=== PATIENT | female | born 1955 | race Caucasian/White ===

== ENCOUNTER 2023-08-13 12:58 | Emergency (ER) | payer BC, SELFPAY ==
[2023-08-13 13:06] VITALS: BP 98/59; PULSE 91; RESP 18; TEMP 36.7; O2SAT 97
--- NOTE | 2023-08-13 14:07 | ED.GENADUL_ITS ---
Discharge Plan Disposition Patient Disposition: Home Condition: Good Discharge Details Clinical Impression: Rash Primary Care Provider: Mary Navas V ED Provider: Brian Flowers Home Meds and New Rx's Prescriptions: New prednisone 50 mg tablet 50 mg PO DAILY Qty: 5 0RF loratadine 10 mg capsule 10 mg PO DAILY Qty: 30 0RF Discharge Instructions Instructions: Allergy to Penicillins, Skin Rash ED Additional Instructions: At this time you have a mild rash. It may be secondary to your previous antibiotic use, but it could also be related to something that you ate or came in contact with. Please monitor your rash closely. Please take loratadine and prednisone as directed. If you notice worsening of the rash, large vesicles or lesions, fever, vomiting or diarrhea, please return immediately for reassessment as rashes can change and develop over time. If you notice any worsening of your symptoms, or any new symptoms such as vomiting, diarrhea, fever, chills, shortness of breath, chest pain, numbness, weakness, or fainting , please return immediately to the emergency department for reevaluation. Please follow up with your primary care provider as soon as possible for reassessment and reevaluation. As always, it was a pleasure participating in your medical care today. Referrals: Mary Navas MD [Primary Care Provider] - [facility] General Date/Time Provider Initiated Documentation: 08/13/23 13:46 . [facility] Narrative: 68-year-old female with no significant past medical history presents today for evaluation of rash. Patient recently had dental work 2 weeks ago, left she started amoxicillin as prescribed for 7 days total and completed it about 5 days ago. Today she woke up and noticed a rash over her legs chest abdomen and spreading up to her arms. It is not itchy. She denies any trauma, new detergents, new foods, or previous rash like this. She denies a history of allergies otherwise. She denies any other atypical history. No other complaints at this time. She denies any burning with urination. No lesions in her mouth. No vomiting or diarrhea. No shortness of breath or difficulty breathing. Related Data Home Medications Medication Instructions Recorded Confirmed loratadine 10 mg capsule 10 mg PO DAILY #30 caps 08/13/23 prednisone 50 mg tablet 50 mg PO DAILY #5 tabs 08/13/23 Previous Rx's Medication Instructions Recorded loratadine 10 mg capsule 10 mg PO DAILY #30 caps 08/13/23 prednisone 50 mg tablet 50 mg PO DAILY #5 tabs 08/13/23 Allergies Allergy/AdvReac Type Severity Reaction Status Date / Time No Known Allergies Allergy Unverified 08/13/23 13:10 General Stated Complaint: RashLesion MARIBEL: 3 Review of Systems All systems reviewed & are unremarkable except as noted in HPI and below Exam Narrative Exam Narrative: 1.Const: Well-nourished, Well-developed, appearing stated age 2.Eyes: PERRL, no conjunctival injection, and symmetrical lids. 3.ENT: Atraumatic external nose and ears. Moist MM. Neck: Symmetric, trachea midline, No thyromegaly. 4.CVS: +S1/S2, No murmurs or gallops. Peripheral pulses 2+ and equal in all extremities. Brisk capillary refill in all extremities. 5.RESP: Unlabored respiratory effort. Clear to auscultation bilaterally. No wheezes rales or rhonchi 6.GI: Soft, Nontender/Nondistended, No hepatosplenomegaly. No guarding or rebound. 7.MSK: Normocephalic/Atraumatic, Extremities w/o deformity or ttp No cyanosis or clubbing, Normal movement of all extremities 8.Skin: Warm, Dry. Patient demonstrates a diffuse, flat nonraised, petechial- like rash over the legs chest abdomen back and arms. No oral lesions. No conjunctival injection. No convalescence of the lesions. Negative Nikolsky sign. No large vesicles or bulla. No palpable purpura. No oral lesions. No mucosal lesions. No evidence of severe cellulitis. No evidence of vaccine preventable rash. 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 Sensation grossly intact, no focal neurologic deficits. 10.Psych: (AAO) x3. Appropriate mood and affect Course Vital Signs Vital signs: Vital Signs Temperature 36.7 C 08/13/23 13:06 Pulse 91 H 08/13/23 13:06 Respiratory Rate 18 08/13/23 13:06 Blood Pressure 98/59 L 08/13/23 13:06 Pulse Oximetry 97 08/13/23 13:06 Temperature 36.7 C 08/13/23 13:06 Temperature Source Temporal Artery Scan 08/13/23 13:06 Pulse 91 H 08/13/23 13:06 Respiratory Rate 18 08/13/23 13:06 Respiratory Effort Normal, Non-Labored 08/13/23 13:11 Blood Pressure 98/59 L 08/13/23 13:06 Blood Pressure Position Sitting 08/13/23 13:06 Pulse Oximetry 97 08/13/23 13:06 Oxygen Delivery Method Room Air 08/13/23 13:06 Oxygen Flow Rate 0 08/13/23 13:06 Medical Decision Making 68-year-old female with no significant past medical history presents today for evaluation of rash. Patient recently had dental work 2 weeks ago, left she started amoxicillin as prescribed for 7 days total and completed it about 5 days ago. Today she woke up and noticed a rash over her legs chest abdomen and spreading up to her arms. It is not itchy. She denies any trauma, new detergents, new foods, or previous rash like this. She denies a history of allergies otherwise. She denies any other atypical history. No other complaints at this time. She denies any burning with urination. No lesions in her mouth. No vomiting or diarrhea. No shortness of breath or difficulty breathing. Exam demonstrates well-appearing female, she has evidence of a petechial nonraised rash with no convalescence or other atypical components. It is all over her legs chest back abdomen and pelvis and arms. No oral lesions. No le sions on the palms of the hands or the soles of the feet. No current clinical evidence of staph scalded skin syndrome, erythema multiforme, erythema migrans, toxic epidermal necrolysis, Walls-Leo syndrome, Kawasaki-like rash, meningococcemia, pemphigus vulgaris, or necrotizing fasciitis. She has no nuchal rigidity, no fever or headache. She is notably nontoxic-appearing. Symptoms likely secondary to a viral component, amoxicillin related, or a mild type of contact dermatitis. She is on no other significant medications otherwise. With her excellent clinical appearance, I do not see an indication for labs or skin biopsy emergently at this time. Will give prednisone and loratadine. She shows no evidence of anaphylaxis whatsoever. She looks notably well. Patient will be discharged home with 5-day course of prednisone and loratadine. Recommend close return if symptoms change or worsen. Discussed red flags which return. I have extensively reviewed the treatment plan and di ana luisa instructions with the patient and their family. I have addressed all patient concerns at this time. The patient and family was made aware of what symptoms to monitor for that would warrant a return to the emergency department. Discussed the plan with the patient and family, they demonstrate verbal understanding and agreement with our assessment and plan at this time. The documentation in this chart was dictated using [employer] dictation software. Please excuse any dictation errors. Quality:SDOH Health Related Social Needs: No Data to Display PFSH All Active Problems Rash (Acute) Urticaria (Acute) Social History Smoking/Tobacco Use Status: Current-Occasional Smoking risk assessment performed?: Yes Alcohol Intake: current Alcohol Intake frequency: holidays/special occasions only Drug use: Never Substance use type: does not use Do you feel safe at home: Yes Do you feel safe in your relationship?: Yes
[2023-08-13 14:26] VITALS: BP 98/59; PULSE 91; RESP 18; TEMP 36.7; O2SAT 97
[2023-08-13] MEDS: Loratidine 10 MG TAB PO (14:28)
[2023-08-13] MEDS: predniSONE 20 MG TAB 60 MG PO (14:28)
== END 2023-08-13 14:26 | disposition home or self-care (01) ==
PROVIDERS: Emergency Provider Student in an Organized Health Care Education/Training Program; PCP Family Medicine
DX: R21 Rash and other nonspecific skin eruption (principal); F17.200 Nicotine dependence, unspecified, uncomplicated
CPT/HCPCS: 99283; J7512

== ENCOUNTER 2024-02-15 06:09 | Observation (INO) | payer BC, SELFPAY ==
[2024-02-15] VITALS (43 sets, daily range): BP systolic 111–166; BP diastolic 67–106; PULSE 64–108; RESP 12–28; TEMP 35.9–37; O2SAT 88–97
--- NOTE | 2024-02-15 06:15 | RT.EKG_ITS ---
APPROVED REPORT Exam: Resting ECG Reason for Exam: cough Patient Location: E HR:95 bpm ECG Measurements Heart Rate 95 AXIS TN 160 P 44 QRSd 90 QRS 6 QT 365 T 44 QTc 459 Conclusion Sinus rhythm...normal P axis, V-rate 60- 99 Normal axis and interval. Nonspecific ST-T changes
--- NOTE | 2024-02-15 06:17 | W.ED.GENAD ---
Discharge Plan Discharge Details Chief Complaint: SOB Clinical Impression: Acute CHF Primary Care Provider: Mary Navas V ED Provider: Burke Zuñiga Home Meds and New Rx's Prescriptions: No Action No Known Home Meds HPI General Mode of arrival: EMS. Date/Time Provider Initiated Documentation: 02/15/24 06:11. Limitations to Documentation: no limitations. Information obtained by: patient, EMS and RN notes reviewed. HPI Narrative: Patient presents to ED from home after calling EMS for shortness of breath. Patient reports increasing shortness of breath over the last week. Shortness of breath much worse with exertion. EMS reports finding her with saturations in the 80s. She was just placed on 0.5 nasal cannula with improvement of saturations. She arrives here tachypneic and tachycardic but not in distress. She does report a history of smoking but has not smoked in the last week. Denies having any fever, chest pain or pressure, abdominal pain, vomiting. She has had some anterior leg pain but no leg swelling or calf pain. She reports no significant past medical history, does not take any medications. Had dental surgery couple months ago so that she could get implants, but no other surgeries. Related Data Home Medications ?Medication ?Instructions ?Recorded ?Confirmed Unknown [No Known Home Meds] 02/15/24 02/15/24 Allergies Allergy/AdvReac Type Severity Reaction Status Date / Time No Known Allergies Allergy Unverified 02/15/24 06:20 General Stated Complaint: SOB MARIBEL: 3 Review of Systems Narrative: Per HPI Exam Narrative Exam Narrative: Const: WDWN elderly female with tachypnea but no distress. VS per triage. HEENT: NC/AT. Normal facial exam. Neck: Supple. Trachea midline. Lungs: Decent air exchange with occasional wheeze, diffuse rhonchi throughout, no crackles appreciated. Cor: RRR, tachycardic, faint murmur. Good radial pulses. GI: Soft/ND/NT. Neuro: A+O x 3. Normal speech, mentation, gait. Cranial nerves II - XII grossly intact. No gross motor or sensory deficit. Ext: No C/C. Mild BLE that is symmetric. No calf tenderness. Course Vital Signs Vital signs: Vital Signs Temperature 96.6 F L 02/15/24 06:09 Pulse 108 H 02/15/24 06:09 Respiratory Rate 18 02/15/24 06:09 Blood Pressure 166/106 H 02/15/24 06:09 Pulse Oximetry 92 02/15/24 06:09 Temperature 96.6 F L 02/15/24 06:09 Temperature Source Temporal Artery Scan 02/15/24 06:09 Pulse 108 H 02/15/24 06:09 Respiratory Rate 18 02/15/24 06:09 Blood Pressure 166/106 H 02/15/24 06:09 Blood Pressure Position Sitting 02/15/24 06:09 Pulse Oximetry 92 02/15/24 06:09 Oxygen Delivery Method Room Air 02/15/24 06:09 Oxygen Flow Rate 0 02/15/24 06:09 Pain Level 0 02/15/24 06:09 Medical Decision Making Elderly female with history of smoking but no other significant past medical history and no medications presenting with a weeks worth of worsening shortness of breath. Initially started out as dyspnea on exertion now short of breath at rest. Room air saturations here are about 92%. She is not in distress but she is sitting upright, is tachypneic, diffuse rhonchi with only few scattered wheezes and decent air exchange. Denies any fever. Has a chronic unchanged cough. Denies chest pain or pressure. Her EKG is sinus tachycardia with nonspecific ST changes, nothing acute and nothing suggesting ischemia. Despite the smoking history she is moving air well without significant wheeze. Will hold off on nebulizer for time being. Consider PE, atypical presentation of ACS. IV established. Laboratory studies obtained. CTA of the chest ordered. Oxygen as needed to keep saturations greater than 92%. 07:14 - Patient's labs with a normocytic anemia, hemoglobin 8.8. White count and platelets are normal. Chemistries unremarkable. Creatinine a little up at 1.2. Liver functions elevated with AST of 131 and ALT of 167. Her troponin is elevated at 85. Her BNP is 21,726. Suspect her shortness of breath and desire to sit upright is due to congestive heart failure, with elevated LFTs suggesting hepatic congestion. She did not experience any type of chest pain or pressure. She has had symptoms for about a week. Possible that she had an AR last week at some point but also possible that her trop is mildly elevated because of demand ischemia. I have ordered her for 40 of Lasix IV. Will obtain 2nd troponin at 8 AM. Will proceed with CTA though I doubt PE at this point. She will need to be admitted pending completion of workup. She is signed out to oncoming ED physician Dr. Bull. Lab Data Lab results reviewed: Yes I reviewed the patient's lab results. Lab results narrative: see [facility] ECG Data Attestation: I personally reviewed and interpreted this ECG (s) as follows: Prior ECG tracings: not available for review Interpretation: see [facility] Critical Care Time Critical Care Time Critical Care Time: Yes Total Critical Care Time: 45 Attestation: Upon my evaluation, this patient had a high probability of imminent or life-threatening deterioration, which required my direct attention, intervention, and personal management. I have personally provided 45 minutes of critical care time exclusive of time spent on separately billable procedures. Time includes monitoring for potential decompensation, ordering of tests and medications, review of laboratory and radiology results, discussion with consultants and documentation . Interventions were performed as documented above in procedures. PFSH All Active Problems (Updated 02/15/24 @ 07:22 by Burke Zuñiga MD) Acute CHF (Acute) Medical History No significant past medical history Surgical History History of dental surgery Social History Smoking/Tobacco Use Status: Former Tobacco Use Quit Date: 02/09/24 Smoking risk assessment performed?: Yes Alcohol Intake: current Alcohol Intake frequency: holidays/special occasions only Drug use: Never Substance use type: does not use Do you feel safe at home: Yes Do you feel safe in your relationship?: Yes
--- NOTE | 2024-02-15 06:18 | DI.CT_ITS ---
Exam(s) CT CHEST PE CTA EXAM: CT CHEST PE CTA CLINICAL HISTORY: SOB, tachycardia. TECHNIQUE: Imaging Protocol: Axial CT angiography was performed with multi-slice acquisition and mu lti-planar reconstructions as well as axial, coronal and sagittal MIP reconstructions. Computer aided detection (CAD) was utilized. CONTRAST MATERIAL: Intravenous: Omnipaque 350 Contrast volume:100 ml COMPARISON: No exams were available for comparison FINDINGS: Pulmonary Arteries: No evidence of filling defect to suggest pulmonary emboli. Mediastinum and Tricia: No dominant adenopathy or fluid collection. Pulmonary parenchyma: No consolidation or dominant measurable mass. Pulmonary edema. Emphysematous changes greater at the apices. Pleura: Moderate size bilateral pleural effusions. No pneumothorax. Heart: The heart is markedly dilated. Moderate to severe coronary artery calcifications are seen. Aorta: Thoracic aorta non-dilated. Not opacified with contrast. Upper abdomen: Reflux of contrast into the IVC indicating right heart failure.. Adrenal thickening. Bones: Degenerative changes. Mild scoliosis. Tubes, Catheters, and Lines: None Soft tissues: Cachectic body habitus. IMPRESSION: No evidence of pulmonary embolism. Cardiomegaly, moderate bilateral pleural effusions and pulmonary edema. RADIATION DOSE DELIVERED: 53.22mGy.cm Total DLP DATA REPOSITORY: All CT scans at this facility are submitted to the National Radiology Data Registry (NRDR) Dose Index Registry (DIR) with the [employer] (ACR). RADIATION OPTIMIZATION: All CT scans at this facility use at least one of these dose optimization te chniques: automated exposure control; mA and/or kV adjustment per patient size (includes targeted exa ms where dose is matched to clinical indication); or iterative reconstruction.
[2024-02-15 06:38] LABS: Abs Immature Grans 0.04 10^3/uL (0.0-0.06); Absolute Basophil Count 0.05 10^3/uL (0.0-0.2); Absolute Eosinophil Count 0.26 10^3/uL (0.0-0.7); Absolute Lymphocyte Count 0.52 10^3/uL (1.2-3.4); Absolute Monocyte Count 0.21 10^3/uL (0.1-0.8); Absolute Neutrophil Count 4.63 10^3/uL (1.2-6.7); Basophils % 0.9 %; Eosinophils % 4.6 %; HCT 28.9 % (36.0-46.0); HGB 8.8 g/dL (11.2-15.7); Immature Grans % 0.7 %; Lymphocytes % 9.1 %; MCHC 30.4 % (32.0-36.0); MCV 89 fL (80-95); MPV 9.4 fL (8.0-11.0); Monocytes % 3.7 %; Platelet Count 241 10^3/uL (130-400); RBC 3.26 10^6/uL (3.93-5.22); RDW 17.3 % (11.7-14.6); RDW-SD 55.8 fL; WBC 5.71 10^3/uL (4.4-10.8)
[2024-02-15 07:01] LABS: ALT 167 U/L (14-59); AST 131 U/L (15-37); Albumin 3.1 g/dL (3.4-5.0); Alkaline Phosphatase 203 U/L (46-116); BUN 14 mg/dL (7-18); Bilirubin, Total 0.54 mg/dL (0.2-1.0); CREATININE 1.2 mg/dL (0.55-1.02); Calcium 8.1 mg/dL (8.5-10.1); Chloride 111 mmol/L (98-107); Glucose 129 mg/dL (74-106); Magnesium 2.1 mg/dL (1.8-2.4); NT-proBNP 21726 pg/mL (<300); Potassium 4.2 mmol/L (3.5-5.1); Sodium 144 mmol/L (136-145); Total Protein 6.5 g/dL (6.4-8.2)
[2024-02-15 07:02] LABS: Troponin I 85 ng/L (<or=51)
[2024-02-15] MEDS: Omnipaque 350 MG/ML 100 ML BTL 70 ML IJ (07:15)
[2024-02-15] MEDS: Normal Saline - Diluent 50 ML VIAL IJ (07:15)
[2024-02-15] MEDS: Furosemide 40 MG/4 ML VIAL IVP ×2 (07:34→15:49)
--- NOTE | 2024-02-15 07:48 | DI.VRAD_ITS ---
PROCEDURE INFORMATION: Exam: CTA Chest With Contrast Exam date and time: 02/15/2024 7:21 AM Age: 68 years old Clinical indication: Other: SOB, tachycardia TECHNIQUE: Imaging protocol: Computed tomographic angiography of the chest with contrast. Exam focused on the arteries. 3D rendering (Not supervised by radiologist): MIP and/or 3D reconstructed images were created by the technologist. Contrast material: OMNIPAQUE; Contrast volume: 70 ml; Contrast route: INTRAVENOUS (IV); COMPARISON: No relevant prior studies available. FINDINGS: Limitations: Mild motion artifact. Pulmonary arteries: No pulmonary embolus is appreciated. Aorta: No thoracic aortic aneurysm seen. Extensive arterial calcifications. Lungs: Cystic changes in the lungs. Interstitial thickening and ground-glass opacities in both lungs. Pleural spaces: Moderate bilateral pleural effusions. Heart: Cardiomegaly. Reflux of contrast into the hepatic veins suggesting right heart failure. Correlate Coronary arteries: Coronary artery calcifications. Esophagus: Fluid and debris in the esophagus. Patient may be at risk for aspiration. Lymph nodes: There is mediastinal and bilateral hilar lymphadenopathy. Adrenal glands: Adrenal thickening. Bones/joints: No acute pertinent abnormality seen. Soft tissues: No acute pertinent abnormality seen. IMPRESSION: 1. No pulmonary embolus is appreciated. 2. Findings suggestive of heart failure with cardiomegaly, pulmonary edema and pleural effusions as described above. Infection cannot be excluded. Follow-up as clinically warranted. 3. Additional findings as above. Dictated and Authenticated by: Shawanda Alas MD. Ordering:DYAN Turk MD
--- NOTE | 2024-02-15 08:04 | ED.PROG_ITS ---
Date of service: 02/15/24 Time of Service: 08:05 Medical Decision Making Care assumed from off going provider. Patient is a 68-year-old female without significant past medical history that presented with new shortness of breath. Workup thus far has been concerning for hypoxia on arrival at 80%. Lab work is concerning for new onset CHF. She has been given Lasix and started diuresing. At the time of signout a CT scan was pending. I have reviewed the V rad report which indicates no sign of pulmonary embolism, there is findings suggestive of heart failure including cardiomegaly pulmonary edema and pulmonary effusions. She is pending a repeat troponin and will be admitted to the hospital for further evaluation once workup has been complete. 0925 Repeat troponin slightly elevated though delta does not seem to to indicate an ACS, but more likely demand ischemia. I have discussed with the hospitalist who agrees to admit the patient for new onset CHF. Will give full dose aspirin as well as high-dose statin. Patient continues to diurese and this is being monitored closely. Quality:SDOH Health Related Social Needs: No Data to Display Discharge Plan Disposition Patient Disposition: Admit to [facility] Condition: Fair Discharge Details Clinical Impression: Acute CHF Primary Care Provider: Mary Navas V ED Provider: Lanny Bull Home Meds and New Rx's Prescriptions: No Action No Known Home Meds
[2024-02-15 08:08] LABS: BE (Venous) -3 mmol/L (-2-3); HCO3 (Venous) 23 mmol/L (23-28); O2 Sat (Venous) 50 %; TCO2 (Venous) 22 mmol/L (24-29); pCO2 (Venous) 43 mmHg (41-51); pH (Venous) 7.33 (7.31-7.41); pO2 (Venous) 30 mmHg
[2024-02-15 08:51] LABS: Troponin I 101 ng/L (<or=51)
--- NOTE | 2024-02-15 09:24 | HPE_ITS ---
Date of service: 02/15/24 Time of Service: 12:05 Assessment and Plan Assessment and plan (1) Acute CHF: Status: Acute Assessment and plan: New diagnosis, evident on CT chest and BNaP and consistent with patient presentation. Echo done to assess ejection fraction, shows reduced LVEF Responding to furosemide, continue BID Medical management indicated for GDMT for HFrEF, add metoprolol when fluid status stable, consider THOMAS/ARB/ARNI, MRA, SLGT2i when renal function stable. (2) Elevated troponin level not due to acute coronary syndrome: Status: Acute Assessment and plan: EKG not c/w STEMI, no chest pain, mild elevation c/w strain from CHF. She is likely to have some coronary artery disease however. Treat with ASA and statin, follow troponins until trending down, repeat EKG if trending up or if develops chest pain. Should have ischemic work up once CHF stable. Measure lipids and A1c to assess CV risk. (3) Anemia: Status: Chronic Assessment and plan: May be contributing to CHF. Unclear time course. High RDW suggests she is responding with elevated reticulocytes, which suggests this is subacute or chronic. -Follow CBC -monitor for bleeding, get occult blood in stool -check iron studies, reticulocyte count -with heart disease consider transfusion if hgb dropping below 8% (4) Smoker: Status: Acute Assessment and plan: Support in efforts to quit, NRT prn (5) Elevated liver enzymes: Status: Acute Assessment and plan: Unclear if acute or chronic. This is likely congestive from CHF, but no screens documented. Get hepatitis labs. (6) Renal insufficiency, mild: Status: Acute Assessment and plan: Unclear baseline, follow function. (7) Abnormal CT scan, esophagus: Status: Acute Assessment and plan: CT suggests some obstruction of food. She has had weight loss, at risk for esophogeal cancer. Should have EGD subacutely. 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 Her shortness of breath started just with exertion about a month ago. She has not had chest pain or palpitations. She has a mild cough with occaisional sputum production, but she attributes this to an ill fitting temporary upper denture. No hemoptysis. The dyspnea has become more chronic and was significantly worse on the day of admission. She has also experienced orthopnea and PND. SOB has improved significantly since diureses in ED with 40mg furosemide. She denies any known history of heart, liver, or kidney issues. She has been told at acute care and the dentist that her blood pressure was low. She has lost about 25lbs since July when she had dental surgery. 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 No bleeding or bruising, no known history of anemia. Review of Systems All systems reviewed & are unremarkable except as noted in HPI and below Constitutional Constitutional: Denies chills and Denies fever(s) ENT Ears, Nose, Mouth, and Throat: Denies dysphagia, Denies nasal congestion, Denies nasal discharge and Reports sore throat (last week along with coworkers, not now) Gastrointestinal Gastrointestinal: Reports belching (more recently), Denies melena, Denies hematochezia, Denies change in bowel habits, Denies change in stool character and Denies dysphagia Hematologic/Lymphatic Hematologic/Lymphatic: Denies easy bleeding PFSH All Active Problems (Updated 02/15/24 @ 13:53 by Reji Thomas) Abnormal CT scan, esophagus (Acute) Renal insufficiency, mild (Acute) DVT prophylaxis (Acute) Elevated liver enzymes (Acute) Elevated troponin level not due to acute coronary syndrome (Acute) Anemia (Chronic) Smoker (Acute) Acute CHF (Acute) Medical History No significant past medical history Surgical History History of dental surgery Social History (Updated 02/15/24 @ 13:42 by Reji Thomas) Smoking/Tobacco Use Status: Former Tobacco Use tobacco type: cigarettes Quit Date: 02/09/24 Smoking risk assessment performed?: Yes Alcohol Intake: current Alcohol Intake frequency: holidays/special occasions only Drug use: Never Substance use type: does not use Housing: house Do you feel safe at home: Yes Do you feel safe in your relationship?: Yes Additional Social history: Lives with in [place]. 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 Normal habitus. No acute distress at rest. HEENT: Head atraumatic. Conjunctiva clear, no icterus. PEERL, EOMI. no rhinorrhea. MMM, OP benign. Neck is supple with no masses or lymphadenopathy, trachea midline LUNGS: Rales in bilateral bases 1/4 up lung gabriel, no wheezes, with normal effort with NC on 1 liter CV: RRR with no murmurs, gallops, or rubs. JVP around 12-14 cm H20 ABD: active bowel sounds, soft, nontender and nondistended. No masses. EXT: no cyanosis, clubbing, or edema MSK: No joint redness or swelling NEURO: CN 2-12 grossly intact. Normal movement of 4 extremities. Normal speech and coordination. No tremor SKIN: No rashes or open wounds. No bruising PSYCH: normal mood and affect, normal thought process Results Imaging CT scan - chest: report reviewed Additional studies: echocardiogram: Mild concentric left ventricular hypertrophy. LV is mildly dilated. Ejection fraction is 25 to 30% with significant global hypokinesis Mildly dilated right ventricle Moderately dilated left atrium. Severely dilated right atrium Aortic valve is sclerotic and trileaflet with trace regurgitation Mitral annular calcification. Mildly thickened mitral leaflets. Moderate mitral regurgitation Normal tricuspid valve with moderate to severe regurgitation. Estimated right ventricular systolic pressure is 57 mmHg EKG: report reviewed and image reviewed (NSR, nl axis, intervals. No ST elevation/depression, flat t-waves diffusely) Imaging Studies: CT chest w: 1. No pulmonary embolus is appreciated. 2. Findings suggestive of heart failure with cardiomegaly, pulmonary edema and pleural effusions as described above. Infection cannot be excluded. Follow-up as clinically warranted. 3. Additional findings as above. Labs 02/15/24 06:25 02/15/24 06:25 Labs: Laboratory Results - last 24 hr 12/26/24 12/26/24 12/26/24 06:25 08:00 08:25 WBC 5.71 RBC 3.26 L Hgb 8.8 L Hct 28.9 L MCV 89 MCH 27.0 MCHC 30.4 L RDW 17.3 H Plt Count 241 MPV 9.4 Immature Gran % 0.7 Neutrophils % 81.0 Lymphocytes % 9.1 Monocytes % 3.7 Eosinophils % 4.6 Basophils % 0.9 Nucleated RBC % 0.0 Absolute Neutrophils 4.63 Absolute Lymphocytes 0.52 L Absolute Monocytes 0.21 Absolute Eosinophils 0.26 Absolute Basophils 0.05 VBG pH 7.33 VBG pCO2 43 VBG pO2 30 VBG HCO3 23 VBG Total CO2 22 L VBG O2 Saturation 50 VBG Base Excess -3 L Sodium 144 Potassium 4.2 Chloride 111 H Carbon Dioxide 23.0 Anion Gap 10.0 BUN 14 Creatinine 1.2 H Est GFR (CKD-EPI 2020) 48.70 Glucose 129 H Calcium 8.1 L Magnesium 2.1 Total Bilirubin 0.54 AST 131 H ALT 167 H Alkaline Phosphatase 203 H Troponin I 85 H* 101 H* NT-Pro-B Natriuret Pep 53364 H Total Protein 6.5 Albumin 3.1 L Last Vital Signs Temp 35.9 C L 02/15/24 06:15 Pulse 102 H 02/15/24 08:31 Resp 24 02/15/24 08:31 BP 148/101 H 02/15/24 08:31 Pulse Ox 97 02/15/24 08:31 Time Spent Time spent with Patient: >75 minutes Time was spent: preparing to see the patient(eg.review tests), obtaining and/or reviewing separately otained hiistory, ordering medications,tests, procedures, referring, communicating with other health manager intensive care unit, indepentently interpreting results, counseling the patient and care coordination
[2024-02-15] MEDS: Aspirin 325 MG TAB PO (09:38)
[2024-02-15] MEDS: Atorvastatin 40 MG TAB 80 MG PO (09:38)
[2024-02-15 10:34] LABS: Hemoglobin A1C 5.7 % (<5.7)
[2024-02-15 10:35] LABS: INR 1.1 (0.9-1.1); Prothrombin Time 11.4 sec (9.1-11.1)
[2024-02-15 10:36] LABS: Reticulocyte 1.9 % (0.5-2.4)
--- NOTE | 2024-02-15 10:57 | W.PC.ACHO ---
Registration Status: Primary Language: Preferred Language: ED Information & Data Chief Complaint SOB 02/15/24 06:19 Triage Note pt arrives by EMS c/o 02/15/24 06:09 difficulty breathing. woke up with dry non productive cough. EMS found her in 80's and placed on 1/2 L of O2, improved to 96%. Has been experiencing exertional SOB for the last few days. Denies CP, fever, N/V/D, abd pain. pt recently quit smoking. Medical / Surgical History (Last Reviewed 02/15/24 @ 06:26 by Burke Zuñiga MD) No significant past medical history (Last Reviewed 02/15/24 @ 06:26 by Burke Zuñiga MD) History of dental surgery Most Recent Vital Signs Temperature 37 C 02/15/24 10:37 Temperature Source Temporal Artery Scan 02/15/24 10:37 Pulse 100 H 02/15/24 10:37 Pulse 91 H 02/15/24 09:20 Respiratory Rate 22 02/15/24 10:37 Respiratory Effort Normal 02/15/24 06:15 Respiratory Depth Normal 02/15/24 06:15 Respiratory Pattern Normal 02/15/24 06:15 Blood Pressure 150/103 H 02/15/24 10:37 Blood Pressure Mean 105 02/15/24 09:16 Blood Pressure Position Sitting 02/15/24 06:15 Pulse Oximetry 88 L 02/15/24 10:37 Oxygen Delivery Method Room Air 02/15/24 10:37 Oxygen Flow Rate 0 02/15/24 10:37 Pain Level 0 02/15/24 10:37 Comment 1 l nc placed 02/15/24 10:37 Allergies No Known Allergies Allergy (Unverified 02/15/24 06:20) Precautions Isolation Standard precaution 02/15/24 06:15 IV IV Catheter Type [Right Peripheral IV Antecubital] IV Catheter Type [Left Forearm Peripheral IV ] IV Catheter Gauge [Right 18 Antecubital] IV Catheter Gauge [Left 20 Forearm] Diet Orders Category Date Time Status Heart Healthy Eating [DIET] Nutrition 02/15/24 Lunch Active Diagnostics 02/15/24 02/15/24 02/15/24 Range/Units 12:25 10:15 08:25 WBC (4.4-10.8) 10^3/uL RBC (3.93-5.22) 10^6/uL Hgb (11.2-15.7) g/dL Hct (36.0-46.0) % MCV (80-95) fL MCH (27.0-33.0) pg MCHC (32.0-36.0) % RDW (11.7-14.6) % Plt Count (130-400) 10^3/uL MPV (8.0-11.0) fL Reticulocyte % (Auto) 1.9 (0.5-2.4) % Immature Gran % % Neutrophils % % Lymphocytes % % Monocytes % % Eosinophils % % Basophils % % Nucleated RBC % (0.0-0.3) % Absolute Neutrophils (1.2-6.7) 10^3/uL Absolute Lymphocytes (1.2-3.4) 10^3/uL Absolute Monocytes (0.1-0.8) 10^3/uL Absolute Eosinophils (0.0-0.7) 10^3/uL Absolute Basophils (0.0-0.2) 10^3/uL PT 11.4 H (9.1-11.1) sec INR 1.1 (0.9-1.1) VBG pH (7.31-7.41) VBG pCO2 (41-51) mmHg VBG pO2 mmHg VBG HCO3 (23-28) mmol/L VBG Total CO2 (24-29) mmol/L VBG O2 Saturation % VBG Base Excess (-2-3) mmol/L Sodium (136-145) mmol/L Potassium (3.5-5.1) mmol/L Chloride (98-107) mmol/L Carbon Dioxide (21.0-32.0) mmol/L Anion Gap (3-11) mmol/L BUN (7-18) mg/dL Creatinine (0.55-1.02) mg/dL Est GFR (CKD-EPI 2020) (mL/min/1.73m2) Glucose (74-106) mg/dL Hemoglobin A1c 5.7 (<5.7) % Calcium (8.5-10.1) mg/dL Magnesium (1.8-2.4) mg/dL Iron Pending TIBC Pending Transferrin % Sat Pending Ferritin Pending Total Bilirubin (0.2-1.0) mg/dL AST (15-37) U/L ALT (14-59) U/L Alkaline Phosphatase (46-116) U/L Troponin I Pending 101 H* (<or=51) ng/L NT-Pro-B Natriuret Pep (<300) pg/mL Total Protein (6.4-8.2) g/dL Albumin (3.4-5.0) g/dL Hepatitis A IgM Ab Pending Hep Bs Antigen Pending Hep B Core Total Ab Pending Hepatitis C Antibody Pending 02/15/24 02/15/24 Range/Units 08:00 06:25 WBC 5.71 (4.4-10.8) 10^3/uL RBC 3.26 L (3.93-5.22) 10^6/uL Hgb 8.8 L (11.2-15.7) g/dL Hct 28.9 L (36.0-46.0) % MCV 89 (80-95) fL MCH 27.0 (27.0-33.0) pg MCHC 30.4 L (32.0-36.0) % RDW 17.3 H (11.7-14.6) % Plt Count 241 (130-400) 10^3/uL MPV 9.4 (8.0-11.0) fL Reticulocyte % (Auto) (0.5-2.4) % Immature Gran % 0.7 % Neutrophils % 81.0 % Lymphocytes % 9.1 % Monocytes % 3.7 % Eosinophils % 4.6 % Basophils % 0.9 % Nucleated RBC % 0.0 (0.0-0.3) % Absolute Neutrophils 4.63 (1.2-6.7) 10^3/uL Absolute Lymphocytes 0.52 L (1.2-3.4) 10^3/uL Absolute Monocytes 0.21 (0.1-0.8) 10^3/uL Absolute Eosinophils 0.26 (0.0-0.7) 10^3/uL Absolute Basophils 0.05 (0.0-0.2) 10^3/uL PT (9.1-11.1) sec INR (0.9-1.1) VBG pH 7.33 (7.31-7.41) VBG pCO2 43 (41-51) mmHg VBG pO2 30 mmHg VBG HCO3 23 (23-28) mmol/L VBG Total CO2 22 L (24-29) mmol/L VBG O2 Saturation 50 % VBG Base Excess -3 L (-2-3) mmol/L Sodium 144 (136-145) mmol/L Potassium 4.2 (3.5-5.1) mmol/L Chloride 111 H (98-107) mmol/L Carbon Dioxide 23.0 (21.0-32.0) mmol/L Anion Gap 10.0 (3-11) mmol/L BUN 14 (7-18) mg/dL Creatinine 1.2 H (0.55-1.02) mg/dL Est GFR (CKD-EPI 2020) 48.70 (mL/min/1.73m2) Glucose 129 H (74-106) mg/dL Hemoglobin A1c (<5.7) % Calcium 8.1 L (8.5-10.1) mg/dL Magnesium 2.1 (1.8-2.4) mg/dL Iron TIBC Transferrin % Sat Ferritin Total Bilirubin 0.54 (0.2-1.0) mg/dL AST 131 H (15-37) U/L ALT 167 H (14-59) U/L Alkaline Phosphatase 203 H (46-116) U/L Troponin I 85 H* (<or=51) ng/L NT-Pro-B Natriuret Pep 16774 H (<300) pg/mL Total Protein 6.5 (6.4-8.2) g/dL Albumin 3.1 L (3.4-5.0) g/dL Hepatitis A IgM Ab Hep Bs Antigen Hep B Core Total Ab Hepatitis C Antibody Intake and Output - 24 Hour Total 02/15/24 05:58 thru 02/15/24 10:38 Output Total 2200 Balance -2200 Weight 50.7 kg Output: Urine 2200 Falls Risk Assessment History of Falls No History 02/15/24 06:15 Contributing Factors No Factors 02/15/24 06:15 Ambulatory Aids Independent 02/15/24 06:15 Tubes/Lines W/no contributing factors 02/15/24 06:15 Gait Evaluation No gait disturbance 02/15/24 06:15 Cognition No cognitive impairment 02/15/24 06:15 Fall Total Score 10 02/15/24 06:15 Level of Risk Standard/Low Risk 02/15/24 06:15 Problems (Last Reviewed 12/26/24 @ 06:26 by Burke Zuñiga MD) Renal insufficiency, mild (Acute) DVT prophylaxis (Acute) Elevated liver enzymes (Acute) Elevated troponin level not due to acute coronary syndrome (Acute) Anemia (Chronic) Smoker (Acute) Acute CHF (Acute) v v v v v v v v v Sending and/or Receiving Nurses: Please use comment section below to note any information pertinent to the patient hand-off not included above. Information / Comments: Report received from: Drea 02/15/24 @ 10 am and gadiel carr @ 1030am
[2024-02-15 11:01] LABS: Ferritin 121 ng/mL (8-252)
[2024-02-15 11:06] LABS: Iron 24 ug/dL (50-170); Total Iron Binding Capacity 290 ug/dL (250-450); Transferrin Sat 8 % (15-50)
--- NOTE | 2024-02-15 11:30 | DI.US_ITS ---
APPROVED REPORT EXAM: Comprehensive 2D, Doppler, and color-flow Echocardiogram Patient Location: In-Patient Room/Bed: 220 Food Broker: Gera Blount RDCS (AE) Indications: CHF Echo Enhancing Agent Indication: Endocardial border delineation Agent(s) / Amount(s) Used: Definity 2.0 cc Comments: Contrast study was performed with 1 IV injection of 2cc of diluted definity. Conclusion Mild concentric left ventricular hypertrophy. LV is mildly dilated. Ejection fraction is 25 to 30% with significant global hypokinesis Mildly dilated right ventricle Moderately dilated left atrium. Severely dilated right atrium Aortic valve is sclerotic and trileaflet with trace regurgitation Mitral annular calcification. Mildly thickened mitral leaflets. Moderate mitral regurgitation Normal tricuspid valve with moderate to severe regurgitation. Estimated right ventricular systolic p ressure is 57 mmHg Wall motion Left Ventricle Left ventricle is mildly dilated. Left ventricular systolic function is decreased. Mild concentric le ft ventricular hypertrophy. There is global hypokinesis of the left ventricle. There is no ventricula r septal defect visualized. LVEF is 25-30%. Right Ventricle Right ventricle is mildly dilated. Right ventricular systolic function is grossly normal. Atria Left atrium is moderately dilated. Right atrium is severely dilated. The interatrial septum is intact with no evidence for an atrial septal defect. Aortic Valve The Aortic valve is sclerotic. Aortic valve is trileaflet. There is no aortic valvular stenosis. Trac e aortic regurgitation. Mitral Valve Mitral annular calcification. Mitral valve leaflets are mildly thickened. No evidence of mitral valve stenosis. Moderate mitral regurgitation. Tricuspid Valve The tricuspid valve is normal in structure. There is no tricuspid valve stenosis. Moderate to severe tricuspid regurgitation. The RVSP is 57.2 mmHg. Pulmonic Valve The pulmonary valve is normal in structure. There is no pulmonic valvular stenosis. Mild pulmonic reg urgitation. Great Vessels The aortic root is normal in size. The ascending aorta is normal in size. Aortic arch is normal in ca liber. The IVC is dilated. The IVC collapses <50% with inspiration. Pericardium Trace pericardial effusion. 2D Dimensions IVSD d PLAX 1.27 cm F: 0.6-1.0 Ao Root d 2.14 cm F: 2.7 - 3.3 LVPW d PLAX 1.28 cm F: 0.6 - 1.0 Ao Asc Diam d 3.32 cm F: 2.3 - 3.1 LVID d PLAX 5.46 cm F: 3.8 - 5.2 IVC Diam exp d SLAX 2.6 cm LVDs 4.84 cm F: 2.2 - 3.5 LV EF Teichholz 24.5 % FS 11.39 % LV EDV (Teich) 144.8 mL LV ESV (Teich) 109.4 mL Stroke Vol Index (Teich) 21.99 M-Mode TAPSE 1.34 cm (M/F) >1.7 LV Volumes - Method of Disks (Workman's) Single Plane 2D LV Volumes Biplane 2D LV Volumes LV EDV A4C 175.3 mL LV EDV BP 208.21 mL F: 46 - 106 LV ESV A4C 129.5 mL LV ESV BP 154.0 mL LVEF(%) A4C 26.2 % LVEF(%) BP 26.03 % F: 54 - 74 LV EDV A2C 226.3 mL LV EDV BP Index 129.32 mL/m2 F: 29 - 61 LV ESV A2C 162.9 mL SV BP LVEF(%) A2C 28.0 % SV Index LA Volume LA Length A4C 5.8 cm LA Length A2C 5.1 cm LA Area A4C s 21.04 cm2 LA Area A2C s 22.56 cm2 LA Vol A4C A-L 65.28 mL LA Vol A2C A-L 84.73 mL LA Vol Biplane A-L 79.0 mL LA Vol/BSA A4C A-L LA Vol/BSA A2C A-L LA Vol/BSA BP A-L 49.1 mL/m2 LA Vol A4C MOD 63.1 mL LA Vol A2C MOD 79.6 mL LA Vol BP MOD 71.8 mL RA Volume RA Area A4C 20.6 cm2 RA ESV A4C (A-L) 66.3mL RA Vol/BSA A4C A-L RA Length A4C 5.4 cm RA ESV A4C (MOD) 62.0mL LV Diastology MV E' medial 0.041 (>0.07 m/s) MV E Vmax 1.05 (0.4-1.3 m/s) MV E/E' MED 25.58 (<14) MV A Vmax 0.75 (0.4-1.3 m/s) MV E' lateral 0.056 (>0.1 m/s) E/A Ratio 1.4 MV E/E' LAT 18.67 (<14) MV E' Average 0.049 m/s MV E/E'(average) 21.58 Aortic Valve AoV Vmax 1.77 m/s LVOT Vmax 0.87 m/s AoV Peak Grad 12.6 mmHg LVOT Peak Grad 3.1 mmHg AoV Area (Vmax) 1.41 cm2 LVOT VTI 0.150 m AoV VTI 0.281 m LVOT Mean Grad 1.6 mmHg AoV Mean Kaiden. 1.09 m/s LVOT SV 42.78 mL AoV Mean Grad 5.6 mmHg LVOT Diam s 1.90 cm AoV Area (VTI) 1.52 cm2 AV Regurg Peak Gr. 12.56 mmHg Velocity Ratio 0.49 Mitral Valve MV DT 131 (160-240 msec) MR Vmax 4.84 m/s MV Vmax TIPS 1.14 m/s MR VTI 1.537 m MV Mean Grad 2.7 (<2mmHg) MR Peak Grad 93.9 mmHg MV VTI 0.261 m MR Mean Grad 58.4 mmHg MR PISA Radius 0.65 cm MR Aliasing Velocity 0.36 m/s Pulmonary Valve PV Vmax 0.85 (0.5-1.5 m/s) RVOT Vmax 0.45 m/s PV Peak Grad 2.9 mmHg RVOT Peak Gr. 0.8 mmHg PV Mean Kaiden 0.56 m/s RVOT VTI 0.095 m PV Mean Grad 1.4 mmHg RVOT Mean Gr. 0.4 mmHg Tricuspid Valve RA Pressure 8.00 mmHg TR Vmax 3.51 m/s TR Peak Grad 49.2 mmHg RVSP (TR) 57.2 mmHg
--- NOTE | 2024-02-15 12:04 | PHA.REVIEW2 ---
Pharmacy Admission Review Admission Clinical Review Admission Pharmacy Review: Renal insufficiency, mild (Acute) DVT prophylaxis (Acute) Elevated liver enzymes (Acute) Elevated troponin level not due to acute coronary syndrome (Acute) Smoker (Acute) Acute CHF (Acute) No Known Allergies Allergy (Unverified 02/15/24 06:20) Resuscitation Status Full Code Height 5 ft 4 in Weight 50.7 kg Comments Comments/Follow Ups: Watch BP, HR, SCr, H/H, LFTs, labs and for med changes (possible renal dose adjustments). Pharmacy Admission Review Renal Dosing Renal Dosing: BUN 14 mg/dL (7-18) 02/15/24 06:25 Creatinine 1.2 mg/dL (0.55-1.02) H 02/15/24 06:25 Medications needing adjustments: Reviewed (Crcl ~34.9 mL/min current meds are okay) Anticoagulation Anticoagulation: Hgb 8.8 g/dL (11.2-15.7) L 02/15/24 06:25 Hct 28.9 % (36.0-46.0) L 02/15/24 06:25 Plt Count 241 10^3/uL (130-400) 02/15/24 06:25 INR 1.1 (0.9-1.1) 02/15/24 10:15 Creatinine 1.2 mg/dL (0.55-1.02) H 02/15/24 06:25 DVT Prophylaxis: Reviewed Medications: Enoxaparin Opiate Usage Evaluate Pain Scale/Pains Meds: N/A Relevant Labs Relevant Labs: Sodium 144 mmol/L (136-145) 02/15/24 06:25 Potassium 4.2 mmol/L (3.5-5.1) 02/15/24 06:25 Chloride 111 mmol/L (98-107) H 02/15/24 06:25 Magnesium 2.1 mg/dL (1.8-2.4) 02/15/24 06:25 Electrolytes, C-Reactive P, ESR: Reviewed DM Control DM Control: Glucose 129 mg/dL (74-106) H 02/15/24 06:25 Hemoglobin A1c 5.7 % (<5.7) 02/15/24 10:15 DM Control: N/A Cardiac Review Cardiac Review: Troponin I 101 ng/L (<or=51) H* 02/15/24 08:25 NT-Pro-B Natriuret Pep 80494 pg/mL (<300) H 02/15/24 06:25 BP, HR, EF%: Reviewed (BP and HR have been elevated most of admission so far.) QTc Review QTc: Reviewed (QTc 459 on admission) IV to PO Switch IV Medications: Reviewed Home Meds Home Med List reviewed: Reviewed (no known home meds) Current Meds Current Medication Order Review: Reviewed Comments Comments/Follow Ups: Watch BP, HR, SCr, H/H, LFTs, labs and for med changes (possible renal dose adjustments).
[2024-02-15 13:09] LABS: Troponin I 114 ng/L (<or=51)
[2024-02-15] MEDS: Enoxaparin 40 MG/0.4 ML SYR SC (14:31)
[2024-02-15] MEDS: Normal Saline Flush 10 ML SYR IVP ×4 (14:32→20:28)
[2024-02-15 16:46] LABS: Troponin I 106 ng/L (<or=51)
[2024-02-16 03:53] VITALS: BP 121/83; PULSE 83; RESP 16; TEMP 36.8; O2SAT 94
[2024-02-16 04:39] VITALS: O2SAT 96
[2024-02-16 04:41] VITALS: O2SAT 96
[2024-02-16 06:40] LABS: HCT 32.2 % (36.0-46.0); HGB 10.2 g/dL (11.2-15.7); MCH 27.2 pg (27.0-33.0); MCHC 31.7 % (32.0-36.0); MCV 86 fL (80-95); MPV 9.7 fL (8.0-11.0); Platelet Count 295 10^3/uL (130-400); RBC 3.75 10^6/uL (3.93-5.22); RDW 17.2 % (11.7-14.6); RDW-SD 53.1 fL; WBC 5.53 10^3/uL (4.4-10.8)
[2024-02-16 07:09] VITALS: BP 109/72; PULSE 83; RESP 16; TEMP 36.2; O2SAT 98
[2024-02-16 07:11] LABS: ALT 122 U/L (14-59); AST 61 U/L (15-37); Albumin 3.2 g/dL (3.4-5.0); Alkaline Phosphatase 183 U/L (46-116); Anion Gap 8.4 mmol/L (3-11); BUN 19 mg/dL (7-18); Bilirubin, Total 0.63 mg/dL (0.2-1.0); CO2 27.6 mmol/L (21.0-32.0); CREATININE 1.4 mg/dL (0.55-1.02); Calcium 8.8 mg/dL (8.5-10.1); Calculated LDL 102 mg/dL (<100); Chloride 107 mmol/L (98-107); Cholesterol 168 mg/dL (<200); Estimated GFR 40.47 (mL/min/1.73m2); Glucose 105 mg/dL (74-106); HDL Cholesterol 40 mg/dL (40-60); Potassium 3.6 mmol/L (3.5-5.1); Sodium 143 mmol/L (136-145); Total Protein 7.1 g/dL (6.4-8.2); Triglyceride 132 mg/dL (<150)
[2024-02-16 07:36] VITALS: BP 110/77; PULSE 83; RESP 16; TEMP 36.9; O2SAT 96
[2024-02-16] MEDS: Aspirin 81 MG CHEW PO (07:45)
[2024-02-16] MEDS: Furosemide 40 MG/4 ML VIAL IVP (07:46)
[2024-02-16] MEDS: Normal Saline Flush 10 ML SYR IVP (07:46)
--- NOTE | 2024-02-16 08:26 | W.CARDCONSUL ---
Date of service: 02/16/24 Time of Service: 08:26 Assessment and Plan Assessment and plan (1) Cardiomyopathy: Status: Acute Assessment and plan: Patient has significant LV dysfunction. She also has evidence of coronary artery disease, see below. She should be started on guideline directed medical therapy. This should include either Entresto (if affordable) or ARB or THOMAS inhibitor. Metoprolol succinate, bisoprolol, or carvedilol could also be utilized once her heart failure has cleared. (2) Coronary artery disease: Status: Chronic Assessment and plan: Her CT scan shows coronary artery disease. She will need an ischemic evaluation when her heart failure is resolved/controlled. This could consist of either cardiac catheterization or if she is unwilling then a myocardial perfusion imaging study. I would think cardiac catheterization would be most useful but will require discussion with her and her . She should be seen in clinic to have these discussions as an outpatient. Please not hesitate to contact me if you have additional questions History of Present Illness History of Present Illness Chief Complaint: Shortness of breath Narrative: This is a 68-year-old woman with a negligible medical history who presented to the hospital yesterday morning with difficulty breathing. She admits that she has been short of breath with activity for several weeks, but it became much worse acutely on the day of presentation. She presented to the hospital where she was in pulmonary edema. Chest x-ray/CT scan of the chest disclosed bilateral pleural effusions as well as vascular congestion, coronary artery calcification. She has been treated diuretics and feels significantly improved. She had an echocardiogram performed. This showed left ventricular dysfunction with an estimated ejection fraction of 25 to 30%, global hypokinesis. The right atrium was severely dilated, left atrium moderately enlarged. There was moderate mitral regurgitation, moderate to severe tricuspid regurgitation and an estimated right ventricular systolic pressure of 57 mmHg consistent with at least moderate pulmonary hypertension. EKG showed left ventricular hypertrophy with repolarization abnormalities. Troponins were minimally elevated, likely due to demand ischemia/heart failure. Patient is cigarette smoker. She says she smokes a pack a week. She has not smoked much recently. She denies any family history of heart disease. She denies hypertension diabetes high cholesterol Review of Systems Cardiovascular Cardiovascular: Reports as per HPI, Denies chest pain, Denies leg edema, Denies radiating jaw, neck or arm pain, Denies palpitations and Reports dyspnea Respiratory Respiratory: Reports dyspnea Endocrine Endocrine: Denies palpitations PFSH All Active Problems (Updated 02/16/24 @ 08:32 by Karli Grossman MD) Coronary artery disease (Chronic) Cardiomyopathy (Acute) Abnormal CT scan, esophagus (Acute) Renal insufficiency, mild (Acute) DVT prophylaxis (Acute) Elevated liver enzymes (Acute) Elevated troponin level not due to acute coronary syndrome (Acute) Anemia (Chronic) Smoker (Acute) Acute CHF (Acute) Medical History No significant past medical history Surgical History History of dental surgery Social History (Updated 02/15/24 @ 13:42 by Reji Thomas) Smoking/Tobacco Use Status: Former Tobacco Use tobacco type: cigarettes Quit Date: 02/09/24 Smoking risk assessment performed?: Yes Alcohol Intake: current Alcohol Intake frequency: holidays/special occasions only Drug use: Never Substance use type: does not use Housing: house Do you feel safe at home: Yes Do you feel safe in your relationship?: Yes Additional Social history: Lives with in [place]. 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 Carotid pulsations are normal no bruits Resp Other: Decreased breath sounds at the bases left greater than right Cardio Other: Heart is regular there is a summation gallop Skin Other: Pale warm and dry Extrem Other: No peripheral edema Results Last Vital Signs Temp 36.9 C 02/16/24 07:36 Pulse 83 02/16/24 07:36 Resp 16 02/16/24 07:36 BP 110/77 02/16/24 07:36 Pulse Ox 96 02/16/24 07:36 Labs 02/16/24 06:10 02/16/24 06:10 Labs: Laboratory Results - last 24 hr 02/15/24 02/15/24 02/15/24 08:25 10:15 12:37 WBC RBC Hgb Hct MCV MCH MCHC RDW Plt Count MPV Reticulocyte % (Auto) 1.9 PT 11.4 H INR 1.1 Sodium Potassium Chloride Carbon Dioxide Anion Gap BUN Creatinine Est GFR (CKD-EPI 2020) Glucose Hemoglobin A1c 5.7 Calcium Iron 24 L TIBC 290 Transferrin % Sat 8 L Ferritin 121 Total Bilirubin AST ALT Alkaline Phosphatase Troponin I 101 H* 114 H* Total Protein Albumin Triglycerides Total Cholesterol LDL Cholesterol, Calc HDL Cholesterol 02/15/24 02/16/24 16:13 06:10 WBC 5.53 RBC 3.75 L Hgb 10.2 L Hct 32.2 L MCV 86 MCH 27.2 MCHC 31.7 L RDW 17.2 H Plt Count 295 MPV 9.7 Reticulocyte % (Auto) PT INR Sodium 143 Potassium 3.6 Chloride 107 Carbon Dioxide 27.6 Anion Gap 8.4 BUN 19 H Creatinine 1.4 H Est GFR (CKD-EPI 2020) 40.47 Glucose 105 Hemoglobin A1c Calcium 8.8 Iron TIBC Transferrin % Sat Ferritin Total Bilirubin 0.63 AST 61 H ALT 122 H Alkaline Phosphatase 183 H Troponin I 106 H* Total Protein 7.1 Albumin 3.2 L Triglycerides 132 Total Cholesterol 168 LDL Cholesterol, Calc 102 H HDL Cholesterol 40
--- NOTE | 2024-02-16 09:02 | PDOC.CMIN ---
Date of service: 02/16/24 Time of Service: 09:02 Care Management Initial Assmt Initial Assessment Reason for Hospitalization: CHF Functional Status/Living Situation Patient Presentation: Karen was sitting up in bed when CM met with her. She was agreeable to conversation and easily engaged with CM. Karen is and lives in [facility]. She is to her Brennan and they have 2 sons and several grandchildren who live out of [place]. 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 She is independent at baseline and does not receive any community services. Karen was admitted with new onset CHF. CM requested a referral for Cardiac Rehab to be able to provide additional education about her new diagnosis. 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 on her property near [facility].) Instrumental Activities of Daily Living (ADLs): Independent Medications Medication Management: No Issues/Barriers identified Advance Directives Advance Directives: Do you have an Advance Directive: N 07/13/14 12:51 AD On File at [facility]: N 07/13/14 13:38 Date Asked 02/15/24 02/15/24 14:42 AD Date Reviewed COLST On File at [facility] COLST Date Scanned Code Status Resuscitation Status Full Code Portal Pt does not currently have a portal and education provided: Yes Insurance Coverage/Financial Issues Insurance: Medicare part A only BC/BS Care Team Visit Care Team Role Provider Type Mary Navas MD Primary Care Provider [facility] STAFF PHYSICIAN Lanny Bull MD Emergency Provider [facility] STAFF PHYSICIAN Reji Thomas Admit Provider [facility] STAFF PHYSICIAN Attending Provider Discharge Potential Discharge Needs: PCP F/U Appt and Other (Cardiology) Anticipated Barriers to Discharge: None Identified Patient/Family Education Needs: Review discharge instructions, discuss Ask Me Three Transportation: Private vehicle Plan: Anticipate Karen will be discharged home, possibly with new home health orders, when medically cleared. She will follow up with her community providers and plan of care and transport with family. CM will follow and continue to assess for discharge needs. PFSH All Active Problems (Updated 02/16/24 @ 08:32 by Karli Grossman MD) Coronary artery disease (Chronic) Cardiomyopathy (Acute) Abnormal CT scan, esophagus (Acute) Renal insufficiency, mild (Acute) DVT prophylaxis (Acute) Elevated liver enzymes (Acute) Elevated troponin level not due to acute coronary syndrome (Acute) Anemia (Chronic) Smoker (Acute) Acute CHF (Acute) Medical History No significant past medical history Surgical History History of dental surgery Social History (Updated 02/15/24 @ 13:42 by Reji Thomas) Smoking/Tobacco Use Status: Former Tobacco Use tobacco type: cigarettes Quit Date: 02/09/24 Smoking risk assessment performed?: Yes Alcohol Intake: current Alcohol Intake frequency: holidays/special occasions only Drug use: Never Substance use type: does not use Housing: house Do you feel safe at home: Yes Do you feel safe in your relationship?: Yes Additional Social history: Lives with in [place]. 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
[2024-02-16 10:27] LABS: Hepatitis A Antibody IgM Negative (Negative); Hepatitis B Core Antibody Negative (Negative); Hepatitis B surface Ag Negative (Negative); Hepatitis C Ab w Rflx HCV PCR Negative (Negative)
[2024-02-16] MEDS: Empaglifozin 10 MG TAB PO (11:00)
[2024-02-16] MEDS: Metoprolol CR 25 MG TABCR 12.5 MG PO (11:00)
[2024-02-16 11:38] VITALS: BP 114/78; PULSE 80; RESP 16; TEMP 36; O2SAT 96
--- NOTE | 2024-02-16 12:29 | PDOC.HHF2F_ITS ---
Home Health Referral Home Health Orders Clinical synopsis of why skilled professionals are needed: CHF, monitor fluid status, blood pressure, pulse and help titrate medications Medical diagnosis necessitation home health referral: HFrEF, CAD, cardiomyopathy Registered Nurse: Check all that apply Instruct on new or changed medication(s)/assess compliance: Ordered Assess for exacerbation of medical condition, instruct patient/caregivers on signs and symptoms to report for early detection: Ordered Home Bound Status Patient has a condition such that leaving home is medically contraindicated (Describe): heart failure, dyspnea Describe why leaving home would require a considerable and taxing effort: Req uires frequent rest periods Encounter Date and Reason: I certify that a FTF encounter for this patient was performed on February 16, 2024 and that such encounter was related to the primary reason the patient requires home health services. The encounter was conducted in the following manner: * By me as the certifying physician, FUEL HOUSE ATTENDANT, PA or * By an inpatient physician, FUEL HOUSE ATTENDANT or PA during an inpatient stay who communicated findings to me, Certification And Authentication I certify that I composed the above information based on my clinical judgment relating to this patient's medical condition and, if applicable, clinical findings communicated to me by the NPP or inpatient physician who performed the FTF encounter. Name of Provider that will be monitoring home health services: Mary Navas
--- NOTE | 2024-02-16 12:31 | DSE_ITS ---
Date of service: 02/16/24 Time of Service: 12:31 DS: Diagnosis Discharge Diagnosis (1) Cardiomyopathy: Status: Acute (2) Coronary artery disease: Status: Chronic Discharge Plan Disposition Patient Disposition: Home W/Home Health Services Condition: Improving Discharge Details Reason For Visit: acute CHF Admit Date/Time: 02/15/24 09:19 Admit Provider: Reji Thomas Attending Provider: Reji Thomas Primary Care Provider: Mary Navas V Hospital Course Hospital Course: 68 female smoker with no regular medical care presented with several weeks of progressively worsening dyspnea on exertion that was worse on the morning of admission. She was hypoxic to 88% on room air. ED evaluation suggested new CHF with CT chest showing cardiomegaly [place] [address]. She diuresed well with 40mg furosemide IV BID and was down 3kg overnight with marked improvement in her symptoms and resolution of her hypoxia. She was discharged on 40mg daily of furosemide. Troponins were mildly elevated but EKG did not show STEMI and she did not have chest pain. Her troponins peaked at 114 before decreasing. This was felt to be demand ischemia, but CT did show coronary calcification and she was started on aspirin and atorvastatin. Her TC was 168 and LDL 102. She was seen by Dr. Grossman from cardiology who recommended guideline directed medical therapy and outpatient follow up to discuss cardiac catheterization to assess for CAD. Because her symptoms were much better she was given 12.5mg of metoprolol succinate as initial therapy with plan to follow up as outpatient. Her blood pressure has always been low so THOMAS/ARB/ARNI and MRA therapy were deferred. She was started on 10mg empagliflozin. Her A1c was 5.7%, just in the pre-diabetic range. Diet was reviewed, with emphasis on Mediterranean diet for her heart health. She had stopped smoking the week before admission and was confident she could continue without smoking without medical assistance. Anemia was noted, which was stable. Iron was low. CT chest did not food not passing normally in her esophagus. Surgery referral was placed to consider upper as well as lower endoscopy, neither of which she has had in the past. Home health was ordered to help monitor CHF. Home Meds and New Rx's Prescriptions: New aspirin [Children's Aspirin] 81 mg Tablet,Chewable 81 mg PO DAILY Qty: 90 3RF atorvastatin 40 mg Tablet 40 mg PO QPM Qty: 90 3RF metoprolol succinate 25 mg Tablet Extended Release 24 Hr 12.5 mg PO DAILY Qty: 30 2RF Jardiance 10 mg Tablet 10 mg PO QAM Qty: 30 3RF furosemide 40 mg tablet 40 mg PO DAILY Qty: 30 0RF ferrous gluconate 324 mg (38 mg iron) tablet 324 mg PO Q OTHER DAY Qty: 45 1RF Discharge Instructions Instructions: Heart Failure, Adult (DC) Additional Instructions: You were prescribed atorvastatin (a cholesterol medication) and baby aspirin (which you can get over the counter cheaply) to lower risk of heart disease. The escape wheel tooth cutter Dr. Grossman recommended a cardiac catheterization to see if you have clogged blood vessels in your heart. A referral was placed to follow up with her about this. You were prescirbed metoprolol and empagliflozin (Jardiance) to protect your heart and help it recover. You may benefit from additional medications if you can tolerate them. There was evidence on the CT scan that food isn't passing normally through the esophogus, which may be contributing to your weight loss. You are at risk for cancer in this area, and you have iron deficiency anemia suggesting you are loosing blood somewhere. Referral was made to surgery to discuss endoscopy to look at your esophogus and stomach and possibly do a colonoscopy as well. We also recommend iron supplement. Your liver was mildly enflammed, likely related to the heart failure. This did improve some. Viral hepatitis tests were sent and are not back yet. Follow up on this with your primary care. Avoid alcohol for now. Good luck quitting cigarettes. This is very important. Consider a Mediterranean type diet to help your heart, and avoid too much sodium. Mild to moderate exercise is okay as long as you aren't getting chest pain or bad shortness of breath. Get a home automatic blood pressure cuff and a basic scale. Check your blood pressure, pulse, and weight daily. We are sending home health to help monitor you for a while as well. You should have an appointment to follow up in 1-2 weeks. You should do the labs at [facility] before your appointment. Referrals: Karli Grossman MD [ [facility] STAFF PHYSICIAN] - (follow up hospitalization for new CHF, need for cardiac cath for ischemic work up?) Activity:: Activity as Tolerated Equipment/Supplies:: No Equipment Needed Diet:: Low Sodium Discharge Orders Discharge Orders: Discharge Order (Routine); Ordered 02/16/24 Ordered By: Reji Thomas Other Ambulatory Orders: Comprehensive Metabolic Panel (Routine) Timeframe: 1 Week Facility: [facility] - Location: Laboratory Outpatient - [facility] Ordered By: Reji Thomas DS: Summary Time Spent with Patient providing and/or coordinating discharge services: Greater than 30 minutes Status at Discharge Functional status at discharge: independent ambulation Overall status at discharge: patient is progressing back to baseline Mental Status: mental status grossly normal Speech and Movement: speech and movement normal Mood: congruent mood Affect: normal affect Quality:SDOH Health Related Social Needs: No Data to Display Exam Narrative Exam Narrative: GEN: Alert and oriented, pleasant and cooperative. No acute distress at rest. LUNGS: Lungs CTAB, no rales CV: RRR with no murmurs, gallops, or rubs. JVP normalized ABD: active bowel sounds, soft, nontender and nondistended. No masses. EXT: no cyanosis, clubbing, or edema Psych Mental Status: mental status grossly normal Speech and Movement: speech and movement normal Mood: congruent mood Affect: normal affect DS: Data Vitals/I&O Vitals and I&O: Vital Signs Temperature 36.0 C L 02/16/24 11:38 Temperature Source Temporal Artery Scan 02/16/24 11:38 Pulse 80 02/16/24 11:38 Pulse Rhythm Regular 02/15/24 10:35 Pulse 91 H 02/15/24 09:20 Respiratory Rate 16 02/16/24 11:38 Respiratory Effort Normal 02/15/24 10:35 Respiratory Depth Normal 02/15/24 10:35 Respiratory Pattern Normal 02/15/24 10:35 Blood Pressure 114/78 02/16/24 11:38 Blood Pressure Mean 105 02/15/24 09:16 Blood Pressure Position Sitting 02/15/24 06:15 Pulse Oximetry 96 02/16/24 11:38 Oxygen Delivery Method Room Air 02/16/24 11:38 Oxygen Flow Rate 0 02/16/24 11:38 Pain Level 0 02/16/24 11:38 Comment during 0300 vitals pt was noted to have 97% O2 saturation on 1L/min. O2 turned off at that time. current recheck of O2 sat is 96% on RA while resting in bed. will monitor when pt ambulates for further need of O2 administration. 02/16/24 04:41 Intake & Output 02/15/24 02/16/24 02/16/24 23:59 11:59 23:59 Intake Total 460 / 460 Output Total 2625 / 4825 Balance -2165 / -4365 Weight 47.7 kg Intake: IV Oral 440 / 440 Output: Urine 2625 / 4825 Other: Urine Color Yellow Urine Appearance Clear Urine Odor Normal Comment pt voiding in toilet. not measurable voided in toilet Data Completed and Pending Labs on day of discharge: Labs from last 24 hours 02/16/24 02/15/24 02/15/24 06:10 16:13 12:37 WBC 5.53 RBC 3.75 L Hgb 10.2 L Hct 32.2 L MCV 86 MCH 27.2 MCHC 31.7 L RDW 17.2 H Plt Count 295 MPV 9.7 Sodium 143 Potassium 3.6 Chloride 107 Carbon Dioxide 27.6 Anion Gap 8.4 BUN 19 H Creatinine 1.4 H Est GFR (CKD-EPI 2020) 40.47 Glucose 105 Calcium 8.8 Total Bilirubin 0.63 AST 61 H ALT 122 H Alkaline Phosphatase 183 H Troponin I 106 H* 114 H* Total Protein 7.1 Albumin 3.2 L Triglycerides 132 Total Cholesterol 168 LDL Cholesterol, Calc 102 H HDL Cholesterol 40 Hepatitis A IgM Ab Hep Bs Antigen Hep B Core Total Ab Hepatitis C Antibody 02/15/24 10:15 WBC RBC Hgb Hct MCV MCH MCHC RDW Plt Count MPV Sodium Potassium Chloride Carbon Dioxide Anion Gap BUN Creatinine Est GFR (CKD-EPI 2020) Glucose Calcium Total Bilirubin AST ALT Alkaline Phosphatase Troponin I Total Protein Albumin Triglycerides Total Cholesterol LDL Cholesterol, Calc HDL Cholesterol Hepatitis A IgM Ab Negative Hep Bs Antigen Negative Hep B Core Total Ab Negative Hepatitis C Antibody Negative PFSH All Active Problems (Updated 02/16/24 @ 08:32 by Karli Grossman MD) Coronary artery disease (Chronic) Cardiomyopathy (Acute) Abnormal CT scan, esophagus (Acute) Renal insufficiency, mild (Acute) DVT prophylaxis (Acute) Elevated liver enzymes (Acute) Elevated troponin level not due to acute coronary syndrome (Acute) Anemia (Chronic) Smoker (Acute) Acute CHF (Acute) Medical History No significant past medical history Surgical History History of dental surgery Social History (Updated 02/15/24 @ 13:42 by Reji Thomas) Smoking/Tobacco Use Status: Former Tobacco Use tobacco type: cigarettes Quit Date: 02/09/24 Smoking risk assessment performed?: Yes Alcohol Intake: current Alcohol Intake frequency: holidays/special occasions only Drug use: Never Substance use type: does not use Housing: house Do you feel safe at home: Yes Do you feel safe in your relationship?: Yes Additional Social history: Lives with in [place]. 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
--- NOTE | 2024-02-16 15:50 | PDOC.CMDIS ---
Date of service: 02/16/24 Time of Service: 15:50 LACE Index Scoring Tool Questions: Length of Stay (in days): 1 Was the patient admitted via the E.D.?: Yes Comorbidities: Congestive Heart Failure and Liver or Renal Disease E.D. Visits: 1 Answers: Total Score: 10 Risk of Readmission: High Risk Care Management Discharge Plan Reason for Hospitalization: CHF Patient/Family Education Needs: Review of discharge instructions with emphasis on daily weights, diet, salt restriction and monitoring for edema. Services Needed at Discharge: Home Health Care Services (RN for continued education) SDOH Health Related Social Needs: No Data to Display
== END 2024-02-16 14:24 | disposition home health service (06) ==
LOC: ER 10:21 → MS 14:42
PROVIDERS: Emergency Medicine; Admitting Provider Family Medicine; Emergency Provider Emergency Medicine; PCP Family Medicine; Visit Provider Family Medicine
DX: I50.21 Acute systolic (congestive) heart failure (principal); R06.02 Shortness of breath; I24.89 Other forms of acute ischemic heart disease; R09.02 Hypoxemia; I42.9 Cardiomyopathy, unspecified; I25.10 Atherosclerotic heart disease of native coronary artery without angina pectoris; R93.3 Abnormal findings on diagnostic imaging of other parts of digestive tract; D64.9 Anemia, unspecified; I27.20 Pulmonary hypertension, unspecified; R79.89 Other specified abnormal findings of blood chemistry; N28.9 Disorder of kidney and ureter, unspecified
CPT/HCPCS: 00123; 36415; 71275; 80053; 80061; 82805; 85027; 86704; 86709; 86803; 87340; 93005; 93306; 96374; 96376; 99222; 99291; J1650; 82728; 83036; 83540; 83550; 83735; 83880; 84484; 85025; 85045; 85610; 93010; 99223; 99239; G0378; J1940; J3490

== ENCOUNTER 2024-02-27 08:22 | Outpatient (CLI) | payer BC, SELFPAY ==
--- NOTE | 2024-02-27 08:15 | RT.EKG_ITS ---
APPROVED REPORT Exam: Resting ECG Reason for Exam: CAD Patient Location: O HR:82 bpm ECG Measurements Heart Rate 82 AXIS KS 153 P 17 QRSd 96 QRS -8 QT 457 T 50 QTc 534 Conclusion Sinus rhythm...normal P axis, V-rate 50- 99 Left atrial enlargement...P, P'>60mS, <-0.15mV V1 Left ventricular hypertrophy...multiple LVH criteria Nonspecific T abnormalities, anterior leads...T <-0.10mV, V2-V4 Prolonged QT interval...QTc >500mS
== END 2024-02-27 08:23 | disposition home or self-care (01) ==
LOC: DI.CARD 08:22
PROVIDERS: PCP Family Medicine; Visit Provider Internal Medicine Cardiovascular Disease
DX: I25.10 Atherosclerotic heart disease of native coronary artery without angina pectoris (principal)
CPT/HCPCS: 93010

== ENCOUNTER → 2024-02-27 11:18 | Outpatient (BNVA) | payer BC, SELFPAY | PROVIDERS: PCP Family Medicine; Referring Provider Family Medicine; Visit Provider Internal Medicine Cardiovascular Disease | DX: I42.9 Cardiomyopathy, unspecified (principal); I25.10 Atherosclerotic heart disease of native coronary artery without angina pectoris | CPT/HCPCS: 93005; 99214 ==

== ENCOUNTER 2024-05-06 00:46 | Outpatient (CLI) | payer BC, SELFPAY ==
--- NOTE | 2024-05-06 06:41 | DI.NM_ITS ---
APPROVED REPORT Exam: Exercise Treadmill Patient Location: Out-Patient Room/Bed: Stress Nurse: Ade Bailey RN Ordering Provider:JONAH SALOMON, Contact Number: BMI: 19.73 Baseline Rhythm: Sinus Rhythm Indications: CAD, cardiomyopathy Medical History Medical History: CAD, cardiomyopathy, anemia, EF 25-25%, elevated troponin level not due to ACS Cardiac Medications: Aspirin, atorvastatin, jardiance, ferrous gluconate, furosemide, losartan, metop rolol succinate Allergies: NKA Cardiac Risk Factors: Former smoker, CVD Previous Cardiac Procedures: None Pretest Chest Pain Characteristics: None Exercise History: Indeterminate Physical Disabilities: None Lung Sounds: Clear to auscultation Heart Sounds: Regular Stress Test Details Test: Exercise stress testing was performed using a Reuben protocol. Nuclear Acquisition: Rest Tc-99m/Stress Tc-99m 1 day Rest Isotope: Tc-99m Sestamibi. Dose: 10.0 Date: 05/06/2024 Injection Time: 0900 Stress Isotope: Tc-99m Sestamibi. Dose: 30.0 Date: 05/06/2024 Injection Time: 1046 HR Resting HR Supine: 73 bpm Max Heart Rate (APMHR): 150 bpm Resting HR Standin bpm Target HR (85% APMHR): 128 bpm Max HR Achieved: 138 bpm % of APMHR: 92 Recovery HR: 81 bpm HR response to stress: Normal HR response to stress BP Resting BP Supine: 146/90 mmHg Resting BP Standin/88 mmHg Max BP: 172/84 mmHg Recovery BP: 140/84 mmHg BP response to stress: Normal blood pressure response to stress. ECG Resting ECG: Sinus Rhythm Ectopy: None Stress ECG: Sinus Tachycardia ST Change: No significant ST segment changes noted Arrhythmia: Rare PAC Recovery ECG: Sinus Rhythm, 1st degree AV block Recovery ST Change: No significant ST segment changes noted Recovery Arrhythmia: Occasional PVC's, Couplets, trigeminy Clinical Reason for Termination: Target HR Achieved, Fatigue Stress Symptoms: None Exercise duration: 04 min59 sec Highest Stage Reached: Stage 2: 2.5 mph at 12% grade. Exercise capacity: 7.01 METs Angina Score: None Delgadillo Treadmill Score: 4.7 Rate Pressure Product: [id number] Stress ECG Conclusion 1. Resting electrocardiogram showed first-degree AV block 2. Patient exercised on the Reuben protocol completed workload of 7 METS 3. Normal heart rate and blood pressure response to exercise. The patient achieved 92% of maximal pr edicted heart rate for age 4. There was no electrocardiographic evidence of myocardial ischemia 5. There were no significant dysrhythmias 6. See MPI report Delgadillo Treadmill Score is 4.7 which is Moderate risk. Stress Test Summary STAGE Time (mins) Speed (mph) Grade (%) HR BP SpO2 SYMPTOMS METS Supine 73 146/90 97% Standing 78 134/88 1 3 1.7 10 115 160/82 91% 4.5 2 6 2.5 12 138 92% 7 1 min recovery 118 164/84 92% 3 min recovery 84 172/84 6 min recovery 81 140/84 98% MPI Conclusion Myocardial perfusion shows no evidence of ischemia or prior infarction Calculated EF is 41% with global hypokinesis
== END 2024-05-06 01:06 ==
PROVIDERS: PCP Family Medicine; Visit Provider Internal Medicine Cardiovascular Disease
DX: I25.10 Atherosclerotic heart disease of native coronary artery without angina pectoris (principal); I42.9 Cardiomyopathy, unspecified
CPT/HCPCS: 78452; 93017

== ENCOUNTER 2024-06-25 13:26 | Outpatient (REF) | payer BC, SELFPAY ==
[2024-06-25 17:29] LABS: Abs Immature Grans 0.01 10^3/uL (0.0-0.06); Absolute Basophil Count 0.07 10^3/uL (0.0-0.2); Absolute Eosinophil Count 0.32 10^3/uL (0.0-0.7); Absolute Neutrophil Count 3.18 10^3/uL (1.2-6.7); Basophils % 1.4 %; Eosinophils % 6.4 %; HCT 37.4 % (36.0-46.0); HGB 11.9 g/dL (11.2-15.7); Immature Grans % 0.2 %; Lymphocytes % 22.1 %; MCH 28.7 pg (27.0-33.0); MCHC 31.8 % (32.0-36.0); MCV 90 fL (80-95); MPV 9.9 fL (8.0-11.0); Neutrophils % 63.9 %; Platelet Count 244 10^3/uL (130-400); RBC 4.14 10^6/uL (3.93-5.22); RDW 17.7 % (11.7-14.6); RDW-SD 59.1 fL; WBC 4.98 10^3/uL (4.4-10.8)
[2024-06-25 17:55] LABS: ALT 27 U/L (14-59); AST 31 U/L (15-37); Albumin 3.8 g/dL (3.4-5.0); Alkaline Phosphatase 194 U/L (46-116); Anion Gap 8.1 mmol/L (3-11); BUN 32 mg/dL (7-18); Bilirubin, Total 0.5 mg/dL (0.2-1.0); CO2 27.9 mmol/L (21.0-32.0); CREATININE 1.4 mg/dL (0.55-1.02); Calcium 9.1 mg/dL (8.5-10.1); Calculated LDL 92 mg/dL (<100); Chloride 103 mmol/L (98-107); Cholesterol 175 mg/dL (<200); Estimated GFR 40.47 (mL/min/1.73m2); Glucose 92 mg/dL (74-106); HDL Cholesterol 69 mg/dL (>or=50); Potassium 4.3 mmol/L (3.5-5.1); Sodium 139 mmol/L (136-145); TSH 2.39 uIU/mL (0.36-3.74); Total Protein 7.5 g/dL (6.4-8.2); Triglyceride 74 mg/dL (<150)
[2024-06-25 18:23] LABS: Hemoglobin A1C 5.8 % (<5.7)
[2024-06-27 10:37] LABS: Hepatitis C Ab w Rflx HCV PCR Negative (Negative)
== END 2024-06-25 13:27 | disposition home or self-care (01) ==
LOC: NCHCN 13:26
PROVIDERS: PCP Family Medicine; Visit Provider Family Medicine
DX: I10 Essential (primary) hypertension (principal); E78.5 Hyperlipidemia, unspecified; Z00.00 Encounter for general adult medical examination without abnormal findings; Z13.1 Encounter for screening for diabetes mellitus
CPT/HCPCS: 80053; 80061; 86803; 83036; 84443; 85025

== ENCOUNTER 2024-07-09 01:24 | Outpatient (CLI) | payer BC, SELFPAY ==
--- NOTE | 2024-07-09 09:55 | DI.DEXA_ITS ---
Exam(s) XR DEXA BONE DENSITY W/WO KRISTINE EXAM: XR DEXA BONE DENSITY W/WO KRISTINE CLINICAL HISTORY: SCREENING FOR OSTEOPOROSIS IN ASYMPTOMATIC MENOPAUSAL STATE,Z78.0 TECHNIQUE: COMPARISON: No exams were available for comparison FINDINGS: Lateral Spine Image: Unremarkable. No compression deformities identified. Left hip: Total T-Score: -2.1 Total Z-Score: -0.5 T- and Z-scores: Findings are consistent with osteopenia. There is osteoporosis in the femoral neck with a T-score of -2.5. Lumbar Spine: Total T-Score: -2.1 Total Z-Score: 0.1 T- and Z-scores: Findings are consistent with osteopenia. IMPRESSION: There is osteoporosis seen in the left femoral neck.
== END 2024-07-09 01:44 ==
LOC: DI 01:24
PROVIDERS: PCP Family Medicine; Visit Provider Family Medicine
DX: Z78.0 Asymptomatic menopausal state (principal); Z13.820 Encounter for screening for osteoporosis; M81.0 Age-related osteoporosis without current pathological fracture
CPT/HCPCS: 77080